=== PATIENT | male | born 1940 | race Caucasian/White ===

== ENCOUNTER 2017-06-10 15:21 | Observation (INO) | payer OTHER ==
[~2017-06-10] VITALS: Ht 167.6 cm; Wt 90.8 kg
[~2017-06-10 15:21] MED LIST: ALBU0.086 INH; ALLO300T2 PO; BENZ100C4 PO; GLUCTAB PO; LEVA500T33 PO; LISI10TA PO; PROP10TA6 PO; ROPI.5 PO; SPACER; SULF-154 PO
[2017-06-10 15:30] VITALS: BP 192/83; PULSE 69; RESP 17; TEMP 97.7; O2SAT 93
[2017-06-10] MEDS ORDERED: ALLO300T2 PO (15:56)
[2017-06-10] MEDS ORDERED: LEVO88TA2 PO (15:56)
[2017-06-10] MEDS ORDERED: INHALER (15:56)
[2017-06-10] MEDS ORDERED: LISI20TA PO (15:56)
[2017-06-10] MEDS ORDERED: PROP40TA3 PO (15:56)
[2017-06-10] MEDS ORDERED: PRIM50TA5 PO (15:56)
[2017-06-10] MEDS ORDERED: PROP20TA3 PO (15:56)
[2017-06-10] MEDS ORDERED: LEVO500T8 PO (15:56)
[2017-06-10] MEDS ORDERED: PREDNISONE PAK (15:56)
[2017-06-10] MEDS ORDERED: AMLO10TA2 PO (15:56)
[2017-06-10] MEDS ORDERED: FENO54TA PO (15:56)
[2017-06-10] MEDS ORDERED: GLIM4TAB PO (15:56)
[2017-06-10] MEDS ORDERED: METF1000 PO (15:56)
[2017-06-10] MEDS ORDERED: PRAV40TA2 PO (15:56)
[2017-06-10] MEDS ORDERED: methylPREDNISolone SOD SUCC 125 MG/2 ML VIAL IV PUSH ONE (16:00)
[2017-06-10] MEDS: RESP: ALBUTEROL 2.5 MG/IPRATROPIUM 0.5 MG NEB (SCH) INH (16:01)
--- NOTE | 2017-06-10 16:32 | PD ---
HPI Chief Complaint: Cold / Flu Symptoms Time Seen by Provider: 15:37 Travel History International Travel<30 days: No Contact w/Intl Traveler<30days: No Traveled to known affect area: No History of Present Illness HPI This is a 76-year-old male with a history of COPD who presents for cough. He has had a nonproductive cough for nearly 4 weeks. He has already completed a Z- Arya and possibly a first dose of prednisone. 2 days ago, he saw his primary physician and was started on Levaquin and prednisone. Despite this, he continues to have cough, wheeze, shortness of breath. He has been using albuterol inhaler without relief. His symptoms are aggravated by exertion. His chest feels tight with coughing but he is not otherwise having chest pain. This does not radiate to arm, neck, jaw. No lower extremity edema, calf pain. Symptoms are moderate in severity. Onset gradual. PFSH Past Medical History Cancer: Yes (COLON) COPD: Yes Diabetes: Yes Patient Takes Glucophage: Yes Diminished Hearing: No Gout: Yes Hypertension: Yes Tetanus Vaccination: Unknown Past Surgical History Abdominal Surgery: Yes (COLON RESECTION) Social History Alcohol Use: No Tobacco Use: No Substance Use: No Allergies-Medications (Allergen,Severity, Reaction): Coded Allergies: No Known Allergies (Unverified Adverse Reaction, Unknown, 06/10/17) Reported Meds & Prescriptions Reported Meds & Active Scripts Active Reported [Inhaler] DIRECTED Levofloxacin 500 Mg Tablet 500 Mg PO DAILY [Prednisone Arya] DIRECTED Amlodipine (Amlodipine Besylate) 10 Mg Tab 10 Mg PO DAILY Levothyroxine (Levothyroxine Sodium) 88 Mcg Tab 88 Mcg PO DAILY Propranolol (Propranolol HCl) 20 Mg Tab 20 Mg PO PM Propranolol (Propranolol HCl) 40 Mg Tab 40 Mg PO AM Metformin (Metformin HCl) 1,000 Mg Tab 1,000 Mg PO BIDPC Fenofibrate 54 Mg Tab 54 Mg PO DAILY Glimepiride 4 Mg Tab 4 Mg PO BIDAC Allopurinol 300 Mg Tab 300 Mg PO DAILY Primidone 50 Mg Tab 150 Mg PO BID Pravastatin 40 Mg Tab 40 Mg PO DAILY Lisinopril-Hctz 20-12.5 Mg Tab 1 Tab PO DAILY Review of Systems Except as stated in HPI: all other systems reviewed are Neg Physical Exam Narrative GENERAL: Alert, well nourished, well appearing patient resting on the bed in no acute distress. Vital Signs reviewed SKIN: Focused skin assessment warm/dry. HEAD: Atraumatic. Normocephalic. EYES: Pupils equal and round. No scleral icterus. No injection or drainage. ENT: No nasal bleeding or discharge. Mucous membranes pink and moist. NECK: Trachea midline. No JVD. Spontaneous, painless full range of motion with no meningismus CARDIOVASCULAR: Regular rate and rhythm. No murmur appreciated. Extremities warm and well perfused with bounding peripheral pulses RESPIRATORY: Diffuse expiratory wheezes present.. Breathing easily and speaking in full sentences GASTROINTESTINAL: Abdomen soft, non-tender, nondistended. Normal bowel sounds. No rigid, rebound, guarding MUSCULOSKELETAL: No obvious deformities. No clubbing. No cyanosis. No edema. Compartments are soft NEUROLOGICAL: Awake and alert. No obvious cranial nerve deficits. Motor grossly within normal limits. Normal speech. Sensation intact. Normal gait Data Data Last Documented VS Vital Signs Date Time Temp Pulse Resp B/P (MAP) Pulse Ox O2 Delivery O2 Flow Rate FiO2 06/10/17 15:42 16 93 Room Air 06/10/17 15:30 97.7 69 192/83 (119) Orders Orders Electrocardiogram (06/10/17 15:48) Complete Blood Count With Diff (06/10/17 15:48) Comprehensive Metabolic Panel (06/10/17 15:48) Prothrombin Time / Inr (Pt) (06/10/17 15:48) Act Partial Throm Time (Ptt) (06/10/17 15:48) Lactic Acid Sepsis Protocol (06/10/17 15:48) Magnesium (Mg) (06/10/17 15:48) Ckmb (Isoenzyme) Profile (06/10/17 15:48) Troponin I (06/10/17 15:48) Influenzae A/B Antigen (06/10/17 15:48) Blood Culture (06/10/17 15:48) Chest, Pa & Lat (06/10/17 15:48) Ecg Monitoring (06/10/17 15:48) Iv Access Insert/Monitor (06/10/17 15:48) Oximetry (06/10/17 15:48) Methylprednisolone So Succ Inj (Solumedr (06/10/17 16:00) Albuterol-Ipratropium Neb (Duoneb Neb) (06/10/17 16:00) Sodium Chlor 0.9% 1000 Ml Inj (Ns 1000 M (06/10/17 18:11) Cefepime Inj (Maxipime Inj) (06/10/17 18:15) Azithromycin Inj (Zithromax Inj) (06/10/17 18:15) Labs Laboratory Tests Test 06/10/17 16:06 06/10/17 17:00 White Blood Count 8.0 TH/MM3 Red Blood Count 4.54 MIL/MM3 Hemoglobin 14.1 GM/DL Hematocrit 41.6 % Mean Corpuscular Volume 91.7 FL Mean Corpuscular Hemoglobin 31.0 PG Mean Corpuscular Hemoglobin Concent 33.8 % Red Cell Distribution Width 14.1 % Platelet Count 277 TH/MM3 Mean Platelet Volume 8.5 FL Neutrophils (%) (Auto) 81.2 % Lymphocytes (%) (Auto) 11.2 % Monocytes (%) (Auto) 4.9 % Eosinophils (%) (Auto) 1.6 % Basophils (%) (Auto) 1.1 % Neutrophils # (Auto) 6.5 TH/MM3 Lymphocytes # (Auto) 0.9 TH/MM3 Monocytes # (Auto) 0.4 TH/MM3 Eosinophils # (Auto) 0.1 TH/MM3 Basophils # (Auto) 0.1 TH/MM3 CBC Comment AUTO DIFF Differential Comment AUTO DIFF CONFIRMED Platelet Estimate NORMAL Platelet Morphology Comment NORMAL Prothrombin Time 10.5 SEC Prothromb Time International Ratio 1.0 RATIO Activated Partial Thromboplast Time 29.4 SEC Blood Urea Nitrogen 30 MG/DL Creatinine 1.30 MG/DL Random Glucose 81 MG/DL Total Protein 7.0 GM/DL Albumin 3.8 GM/DL Calcium Level 8.8 MG/DL Magnesium Level 1.8 MG/DL Alkaline Phosphatase 52 U/L Aspartate Amino Transf (AST/SGOT) 16 U/L Alanine Aminotransferase (ALT/SGPT) 24 U/L Total Bilirubin 0.1 MG/DL Sodium Level 134 MEQ/L Potassium Level 4.9 MEQ/L Chloride Level 98 MEQ/L Carbon Dioxide Level 25.3 MEQ/L Anion Gap 11 MEQ/L Estimat Glomerular Filtration Rate 54 ML/MIN Lactic Acid Level 4.7 mmol/L Total Creatine Kinase 60 U/L Troponin I LESS THAN 0.02 NG/ML MDM Medical Decision Making Medical Screen Exam Complete: Yes Emergency Medical Condition: Yes Medical Record Reviewed: Yes Interpretation(s) EKG shows sinus rhythm with a rate of 71. No acute ST elevation Last 24 hours Impressions Chest X-Ray 06/10/17 1548 Signed Impressions: Service Date/Time: Saturday, June 10, 2017 17:01 - CONCLUSION: Basilar atelectasis. eKv Bartlett MD Laboratory Tests Test 06/10/17 16:06 06/10/17 17:00 White Blood Count 8.0 TH/MM3 Red Blood Count 4.54 MIL/MM3 Hemoglobin 14.1 GM/DL Hematocrit 41.6 % Mean Corpuscular Volume 91.7 FL Mean Corpuscular Hemoglobin 31.0 PG Mean Corpuscular Hemoglobin Concent 33.8 % Red Cell Distribution Width 14.1 % Platelet Count 277 TH/MM3 Mean Platelet Volume 8.5 FL Neutrophils (%) (Auto) 81.2 % Lymphocytes (%) (Auto) 11.2 % Monocytes (%) (Auto) 4.9 % Eosinophils (%) (Auto) 1.6 % Basophils (%) (Auto) 1.1 % Neutrophils # (Auto) 6.5 TH/MM3 Lymphocytes # (Auto) 0.9 TH/MM3 Monocytes # (Auto) 0.4 TH/MM3 Eosinophils # (Auto) 0.1 TH/MM3 Basophils # (Auto) 0.1 TH/MM3 CBC Comment AUTO DIFF Differential Comment AUTO DIFF CONFIRMED Platelet Estimate NORMAL Platelet Morphology Comment NORMAL Prothrombin Time 10.5 SEC Prothromb Time International Ratio 1.0 RATIO Activated Partial Thromboplast Time 29.4 SEC Blood Urea Nitrogen 30 MG/DL Creatinine 1.30 MG/DL Random Glucose 81 MG/DL Total Protein 7.0 GM/DL Albumin 3.8 GM/DL Calcium Level 8.8 MG/DL Magnesium Level 1.8 MG/DL Alkaline Phosphatase 52 U/L Aspartate Amino Transf (AST/SGOT) 16 U/L Alanine Aminotransferase (ALT/SGPT) 24 U/L Total Bilirubin 0.1 MG/DL Sodium Level 134 MEQ/L Potassium Level 4.9 MEQ/L Chloride Level 98 MEQ/L Carbon Dioxide Level 25.3 MEQ/L Anion Gap 11 MEQ/L Estimat Glomerular Filtration Rate 54 ML/MIN Lactic Acid Level 4.7 mmol/L Total Creatine Kinase 60 U/L Troponin I LESS THAN 0.02 NG/ML Differential Diagnosis Acute bronchitis, pneumonia, COPD exacerbation, atypical angina, failed outpatient therapy Narrative Course Patient was placed on a monitor car operator. IV access was established. EKG, chest x-ray, labs were performed. Patient was given IV fluids, DuoNeb's and IV Solu-Medrol. He was given broad-spectrum IV antibiotics. I am concerned regarding his failed outpatient therapy of COPD exacerbation and elevated lactate. Plan for admission for further evaluation and care Diagnosis Primary Impression: COPD exacerbation Additional Impression: Failure of outpatient treatment Josefina Liu MD Jun 10, 2017 16:32
[2017-06-10 16:35] LABS: AUTOMATED NEUTROPHIL # 6.5 TH/MM3 (1.8-7.7); BASOPHIL # 0.1 TH/MM3 (0-0.2); BASOPHIL % 1.1 % (0.0-2.0); EOSINOPHIL # 0.1 TH/MM3 (0-0.4); EOSINOPHIL % 1.6 % (0.0-4.0); HEMATOCRIT 41.6 % (39.0-51.0); HEMOGLOBIN 14.1 GM/DL (13.0-17.0); LYMPH % 11.2 % (9.0-44.0); LYMPHOCYTE # 0.9 TH/MM3 (1.0-4.8); MEAN CELL VOLUME 91.7 FL (80.0-100.0); MEAN CORPUSCULAR HGB CONC 33.8 % (32.0-36.0); MEAN PLATELET VOLUME 8.5 FL (7.0-11.0); MONO % 4.9 % (0.0-8.0); MONOCYTE # 0.4 TH/MM3 (0-0.9); NEUT % 81.2 % (16.0-70.0); PLATELET COUNT 277 TH/MM3 (150-450); RED BLOOD COUNT 4.54 MIL/MM3 (4.50-5.90); RED CELL DISTRIBUTION WIDTH 14.1 % (11.6-17.2)
--- NOTE | 2017-06-10 17:19 | RADRPT ---
EXAM DATE/TIME: 06/10/2017 17:01 [facility] COMPARISON: No previous studies available for comparison. INDICATIONS : Cough, short of breath, for 4 weeks MEDICAL HISTORY : Chronic obstructive pulmonary disease. Diabetes mellitus type II. SURGICAL HISTORY : None. ENCOUNTER: Initial ACUITY: 1 month PAIN SCORE: 0/10 LOCATION: Bilateral chest FINDINGS: There is cardiomegaly. There are atelectatic changes at the lung bases. No definite effusion or conso lidation. Degenerative changes of the spine. ACDF hardware overlies the cervical spine. Moderate dege nerative changes at the acromioclavicular joints. CONCLUSION: Basilar atelectasis. Kev Bartlett MD on June 10, 2017 at 17:18 Board Certified Radiologist. This report was verified electronically.
[2017-06-10 17:30] LABS: CHLORIDE 98 MEQ/L (98-107); SODIUM (NA) 134 MEQ/L (136-145)
[2017-06-10 17:34] LABS: ALBUMIN 3.8 GM/DL (3.4-5.0); BICARBONATE 25.3 MEQ/L (21.0-32.0); CALCIUM 8.8 MG/DL (8.5-10.1)
[2017-06-10 17:35] LABS: BLOOD UREA NITROGEN 30 MG/DL (7-18); GLUCOSE,RANDOM 81 MG/DL (74-106); MAGNESIUM 1.8 MG/DL (1.5-2.5)
[2017-06-10 17:36] LABS: PROTHROMBIN TIME - PATIENT 10.5 SEC (9.8-11.6)
[2017-06-10 17:37] LABS: ALT (GPT) 24 U/L (12-78); AST (GOT) 16 U/L (15-37)
[2017-06-10 17:38] LABS: GLOMERULAR FILTRATION RATE 54 ML/MIN (>89)
[2017-06-10 17:39] LABS: TOTAL BILIRUBIN ADULT 0.1 MG/DL (0.2-1.0)
[2017-06-10 17:40] LABS: ALKALINE PHOSPHATASE 52 U/L (45-117)
[2017-06-10 17:43] LABS: TROPONIN I LESS THAN 0.02 NG/ML (0.02-0.05)
[2017-06-10 18:01] LABS: LACTIC ACID SEPSIS PROTOCOL 4.7 mmol/L (0.4-2.0)
[2017-06-10] MEDS ORDERED: SODIUM CHLOR 0.9% 1000 ML INJ 1,000 ML IV SCH (18:11)
[2017-06-10] MEDS ORDERED: CEFEPIME INJ 2,000 MG in SODIUM CHLORIDE 0.9% INJ 100 ML IV ONE (18:15)
[2017-06-10] MEDS ORDERED: AZITHROMYCIN INJ 500 MG in SODIUM CHLOR 0.9% 250 ML INJ 250 ML IV ONE (18:15)
[2017-06-10] MEDS ORDERED: GLUCAGON 1 MG/ML VIAL OTHER PRN (18:45)
[2017-06-10] MEDS ORDERED: NALOXONE HCL 0.4 MG/ML AMP IV PUSH PRN (18:45)
[2017-06-10] MEDS ORDERED: SODIUM CHLORIDE 0.9% FLUSH 10 ML FLUSH IV FLUSH PRN (18:45)
[2017-06-10] MEDS ORDERED: ACETAMINOPHEN 325 MG TAB PO PRN (18:45)
[2017-06-10] MEDS ORDERED: RESP: ALBUTEROL 2.5 MG/IPRATROPIUM 0.5 MG NEB (PRN) NEB (18:45)
[2017-06-10] MEDS ORDERED: DEXTROSE 50% IN WATER 50 ML VIAL(D50) IV PUSH PRN (18:45)
[2017-06-10] MEDS ORDERED: SENNOSIDES 8.6 MG TAB PO PRN (18:45)
--- NOTE | 2017-06-10 18:57 | HHI.HP ---
[facility] Service [facility] Primary Care Physician Devante Arellano Do, MD Admission Diagnosis COPD Exacerbation, Failed Outpatient therapy, Acute Bronchitis Diagnoses: Chief Complaint: Shortness of breath Travel History International Travel<30 Days: No Contact w/Intl Traveler <30 Da: No Traveled to Known Affected Are: No History of Present Illness This patient is a 76-year-old gentleman with history of COPD who came to the emergency room with increased cough. Through the outpatient setting he has completed a Z-Arya and some Levaquin as well as a steroid course 2. Patient still had coughing and wheezing and shortness of breath. Patient did come to the hospital for further evaluation. Sputum is nonproductive. He has been admitted to the hospital for further evaluation due to failed outpatient treatment. Review of Systems Constitutional: DENIES: Diaphoretic episodes, Fatigue, Fever, Weight gain, Weight loss, Chills, Dizziness, Change in appetite, Night Sweats Endocrine: DENIES: Heat/cold intolerance, Polydipsia, Polyuria, Polyphagia Eyes: DENIES: Blurred vision, Diplopia, Eye inflammation, Eye pain, Vision loss , Photosensitivity, Double Vision Ears, nose, mouth, throat: DENIES: Tinnitus, Hearing loss, Vertigo, Nasal discharge, Oral lesions, Throat pain, Hoarseness, Ear Pain, Running Nose, Epistaxis, Sinus Pain, Toothache, Odynophagia Respiratory: COMPLAINS OF: Wheezing, Shortness of breath, DENIES: Apneas, Cough , Snoring, Hemoptysis, Sputum production Cardiovascular: COMPLAINS OF: Dyspnea on Exertion, DENIES: Chest pain, Palpitations, Syncope, PND, Lower Extremity Edema, Orthopnea, Claudication Gastrointestinal: DENIES: Abdominal pain, Black stools, Bloody stools, Constipation, Diarrhea, Nausea, Vomiting, Difficulty Swallowing, Anorexia Genitourinary: DENIES: Sexual dysfunction, Urinary frequency, Urinary incontinence, Urgency, Hematuria, Dysuria, Nocturia, Penile Discharge, Testicular Pain, Testicular Swelling Musculoskeletal: DENIES: Joint pain, Muscle aches, Stiffness, Joint Swelling, Back pain, Neck pain Integumentary: DENIES: Abnormal pigmentation, Nail changes, Pruritus, Rash Hematologic/lymphatic: DENIES: Bruising, Lymphadenopathy Immunologic/allergic: DENIES: Eczema, Urticaria Neurologic: COMPLAINS OF: Tremor, DENIES: Abnormal gait, Headache, Localized weakness, Paresthesias, Seizures, Speech Problems, Poor Balance Psychiatric: DENIES: Anxiety, Confusion, Mood changes, Depression, Hallucinations, Agitation, Suicidal Ideation, Homicidal Ideation, Delusions Except as stated in HPI: all other systems reviewed are Neg Past Family Social History Past Medical History COPD Parkinson's Hypertension Colon cancer Diabetes Gout Past Surgical History Neck surgery, colon resection Reported Medications Reviewed in the EMR, recently took levofloxacin and prednisone pack Allergies: Coded Allergies: No Known Allergies (Unverified Adverse Reaction, Unknown, 06/10/17) Active Ordered Medications Reviewed in the EMR Family History Mother had hypertension Social History Denies tobacco or alcohol dependency, lives with his Physical Exam Vital Signs Vital Signs Date Time Temp Pulse Resp B/P (MAP) Pulse Ox O2 Delivery O2 Flow Rate FiO2 06/10/17 15:42 16 93 Room Air 06/10/17 15:30 97.7 69 17 192/83 (119) 93 Physical Exam GENERAL: This is a well-nourished, well-developed patient, tremor at rest, complaining of shortness of breath SKIN: No rashes, ecchymoses or lesions. Cool and dry. HEAD: Atraumatic. Normocephalic. No temporal or scalp tenderness. EYES: Pupils equal round and reactive. Extraocular motions intact. No scleral icterus. No injection or drainage. ENT: Nose without bleeding, purulent drainage or septal hematoma. Throat without erythema, tonsillar hypertrophy or exudate. Uvula midline. Airway patent. NECK: Trachea midline. No JVD or lymphadenopathy. Supple, nontender, no meningeal signs. CARDIOVASCULAR: Regular rate and rhythm without murmurs, gallops, or rubs. RESPIRATORY: Bilateral rhonchorous breath sounds, tachypneic GASTROINTESTINAL: Abdomen soft, non-tender, nondistended. No hepato-splenomegaly , or palpable masses. No guarding. MUSCULOSKELETAL: Extremities without clubbing, cyanosis, or edema. No joint tenderness, effusion, or edema noted. No calf tenderness. Negative Homans sign bilaterally. NEUROLOGICAL: Awake and alert. Cranial nerves II through XII intact. Motor and sensory grossly within normal limits. Five out of 5 muscle strength in all muscle groups. Normal speech. Laboratory Laboratory Tests Test 06/10/17 16:06 06/10/17 17:00 White Blood Count 8.0 Red Blood Count 4.54 Hemoglobin 14.1 Hematocrit 41.6 Mean Corpuscular Volume 91.7 Mean Corpuscular Hemoglobin 31.0 Mean Corpuscular Hemoglobin Concent 33.8 Red Cell Distribution Width 14.1 Platelet Count 277 Mean Platelet Volume 8.5 Neutrophils (%) (Auto) 81.2 Lymphocytes (%) (Auto) 11.2 Monocytes (%) (Auto) 4.9 Eosinophils (%) (Auto) 1.6 Basophils (%) (Auto) 1.1 Neutrophils # (Auto) 6.5 Lymphocytes # (Auto) 0.9 Monocytes # (Auto) 0.4 Eosinophils # (Auto) 0.1 Basophils # (Auto) 0.1 CBC Comment AUTO DIFF Differential Comment AUTO DIFF CONFIRMED Platelet Estimate NORMAL Platelet Morphology Comment NORMAL Prothrombin Time 10.5 Prothromb Time International Ratio 1.0 Activated Partial Thromboplast Time 29.4 Blood Urea Nitrogen 30 Creatinine 1.30 Random Glucose 81 Total Protein 7.0 Albumin 3.8 Calcium Level 8.8 Magnesium Level 1.8 Alkaline Phosphatase 52 Aspartate Amino Transf (AST/SGOT) 16 Alanine Aminotransferase (ALT/SGPT) 24 Total Bilirubin 0.1 Sodium Level 134 Potassium Level 4.9 Chloride Level 98 Carbon Dioxide Level 25.3 Anion Gap 11 Estimat Glomerular Filtration Rate 54 Lactic Acid Level 4.7 Total Creatine Kinase 60 Troponin I LESS THAN 0.02 Date/Time Source Procedure Growth Status 06/10/17 16:06 Blood Peripheral Aerobic Blood Culture Pending Received 06/10/17 16:06 Blood Peripheral Anaerobic Blood Culture Pending Received 06/10/17 16:06 Nasal Washing Influenza Types A,B Antigen ([place]) - Final NEGATIVE FOR FLU A AND B ANTIGEN.... Complete Result Diagram: 06/10/17 1606 06/10/17 1700 Imaging Last Impressions Chest X-Ray 06/10/17 1548 Signed Impressions: Service Date/Time: Saturday, June 10, 2017 17:01 - CONCLUSION: Basilar atelectasis. Kev Bartlett MD Septic Shock Reassessment Septic shock perfusion: reassessment completed Caprini VTE Risk Assessment Caprini VTE Risk Assessment: No/Low Risk (score <= 1) Caprini Risk Assessment Model Point Value = 1 Point Value = 2 Point Value = 3 Point Value = 5 Age 41-60 Minor surgery BMI > 25 kg/m2 Swollen legs Varicose veins or History of unexplained or recurrent spontaneous Oral contraceptives or hormone replacement Sepsis (< 1 month) Serious lung disease, including pneumonia (< 1 month) Abnormal pulmonary function Acute myocardial infarction Congestive heart failure (< 1 month) History of inflammatory bowel disease Medical patient at bed rest Age 61-74 Arthroscopic surgery Major open surgery (> 45 min) Laparoscopic surgery (> 45 min) Malignancy Confined to bed (> 72 hours) Immobilizing plaster cast Central venous access Age >= 75 History of VTE Family history of VTE Factor V Leiden Prothrombin [id number] Lupus anticoagulant Anticardiolipin antibodies Elevated serum homocysteine Heparin-induced thrombocytopenia Other congenital or acquired thrombophilia Stroke (< 1 month) Elective arthroplasty Hip, pelvis, or leg fracture Acute spinal cord injury (< 1 month) Prophylaxis Regimen Total Risk Factor Score Risk Level Prophylaxis Regimen 0-1 Low Early ambulation 2 Moderate Order ONE of the following: *Sequential Compression Device (SCD) *Heparin 5000 units SQ BID 3-4 Higher Order ONE of the following medications: *Heparin 5000 units SQ TID *Enoxaparin/Lovenox 40 mg SQ daily (WT < 150 kg, CrCl > 30 mL/min) *Enoxaparin/Lovenox 30 mg SQ daily (WT < 150 kg, CrCl > 10-29 mL/min) *Enoxaparin/Lovenox 30 mg SQ BID (WT < 150 kg, CrCl > 30 mL/min) AND/OR *Sequential Compression Device (SCD) 5 or more Highest Order ONE of the following medications: *Heparin 5000 units SQ TID (Preferred with Epidurals) *Enoxaparin/Lovenox 40 mg SQ daily (WT < 150 kg, CrCl > 30 mL/min) *Enoxaparin/Lovenox 30 mg SQ daily (WT < 150 kg, CrCl > 10-29 mL/min) *Enoxaparin/Lovenox 30 mg SQ BID (WT < 150 kg, CrCl > 30 mL/min) AND *Sequential Compression Device (SCD) Assessment and Plan Problem List: (1) DM2 (diabetes mellitus, type 2) ICD Code: E11.9 - Type 2 diabetes mellitus without complications Plan: Controlled on current regimen at home however we will discontinue metformin while inpatient and continue with sliding scale insulin and diabetic diet (2) HTN (hypertension) ICD Code: I10 - Essential (primary) hypertension Plan: Patient's blood pressures controlled on current regimen of propanolol and amlodipine which we will continue (3) Parkinson disease ICD Code: G20 - Parkinson's disease Plan: mostly tremors no meds (4) COPD exacerbation ICD Code: J44.1 - Chronic obstructive pulmonary disease with (acute) exacerbation Status: Acute Plan: Continue with nebulized bronchodilators and IV steroids, IV antibiotics Follow-up CT chest Physician Certification 2 Midnight Certification Type: Admission for Inpatient Services Order for Inpatient Services The services are ordered in accordance with Medicare regulations or non- Medicare payer requirements, as applicable. In the case of services not specified as inpatient-only, they are appropriately provided as inpatient services in accordance with the 2-midnight benchmark. Estimated LOS (days): 3 3 days is the estimated time the patient will need to remain in the hospital, assuming treatment plan goals are met and no additional complications. Post-Hospital Plan: Home Beatrice Holden MD Jun 10, 2017 18:57
[2017-06-10 19:11] VITALS: BP 170/75; PULSE 67; RESP 18; O2SAT 92
[2017-06-10] MEDS: RESP: ALBUTEROL 2.5 MG/IPRATROPIUM 0.5 MG NEB (SCH) NEB (19:18)
[2017-06-10 19:21] VITALS: O2SAT 95
[2017-06-10] MEDS: SODIUM CHLORIDE 0.9% FLUSH 10 ML FLUSH IV FLUSH SCH (20:32)
--- NOTE | 2017-06-10 20:35 | RADRPT ---
EXAM DATE/TIME: 06/10/2017 20:15 [facility] COMPARISON: CHEST PA & LAT, June 10, 2017, 17:01. INDICATIONS : Cough and short of breath x 4 weeks. Pneumonia. RADIATION DOSE: 17.31 CTDIvol (mGy) MEDICAL HISTORY : Carcinoma, colon. Chronic obstructive pulmonary disease. Diabetes mellitus type 2. Hypertension. SURGICAL HISTORY : Colon resection. ENCOUNTER: Initial ACUITY: 1 month PAIN SCALE: 0/10 LOCATION: chest TECHNIQUE: Volumetric scanning of the chest was performed. Using automated exposure control and adjustment of t he mA and/or kV according to patient size, radiation dose was kept as low as reasonably achievable to obtain optimal diagnostic quality images. DICOM format image data is available electronically for r eview and comparison. Follow-up recommendations for detected pulmonary nodules are based at a minimum on nodule size and pa tient risk factors according to Fleischner Society Guidelines. FINDINGS: There is a calcified granuloma in the left lower lobe measuring 3.3 mm on image 26. There are depende nt atelectatic changes identified. There is no evidence of pneumonia. Prominent coronary artery calci fication is seen. There is aneurysmal dilatation of the ascending aorta measuring 4.5 x 4.6 cm in AP and transverse dimension on image 28. No pleural or pericardial effusions are seen. Atherosclerotic c alcifications of the aorta are noted, and there are degenerative changes of the spine. CONCLUSION: 1. Ascending aortic aneurysm. 2. Dependent atelectatic changes. 3. Left lower lobe calcified granuloma. 4. Atherosclerosis. Kev Bartlett MD on June 10, 2017 at 20:32 Board Certified Radiologist. This report was verified electronically.
[2017-06-10] MEDS ORDERED: PROPRANOLOL HCL 20 MG TAB PO SCH (21:00)
[2017-06-10] MEDS: INSULIN ASPART SUPPLEMENTAL SCALE SQ SCH (21:00)
[2017-06-10] MEDS: SODIUM CHLOR 0.9% 1000 ML INJ 1,000 ML IV SCH (21:37)
[2017-06-10] MEDS: DOXYCYCLINE INJ 100 MG in SODIUM CHLORIDE 0.9% INJ 100 ML IV SCH (21:39)
[2017-06-10] MEDS: PRIMIDONE 50 MG TAB PO SCH (21:39)
[2017-06-11] VITALS: BP 141/70; PULSE 71; RESP 18; TEMP 96.6; O2SAT 95
[2017-06-11] MEDS: methylPREDNISolone SOD SUCC 40 MG/1 ML VIAL IV PUSH SCH ×2 (00:21→09:57)
[2017-06-11] MEDS ORDERED: CEFEPIME INJ 1,000 MG in SODIUM CHLORIDE 0.9% INJ 100 ML IV SCH ×2 (02:00→06:00)
[2017-06-11] MEDS: SODIUM CHLOR 0.9% 1000 ML INJ 1,000 ML IV SCH (04:36)
[2017-06-11] MEDS ORDERED: LEVOTHYROXINE SODIUM 88 MCG TAB PO SCH (06:00)
[2017-06-11] MEDS ORDERED: GLIMEPIRIDE 4 MG TAB PO SCH (07:00)
[2017-06-11 07:13] LABS: BASOPHIL # 0.2 TH/MM3 (0-0.2); BASOPHIL % 2.3 % (0.0-2.0); EOSINOPHIL % 0.3 % (0.0-4.0); HEMATOCRIT 35.5 % (39.0-51.0); HEMOGLOBIN 12.4 GM/DL (13.0-17.0); LYMPH % 10.8 % (9.0-44.0); LYMPHOCYTE # 0.8 TH/MM3 (1.0-4.8); MEAN CELL VOLUME 92.8 FL (80.0-100.0); MEAN CORPUSCULAR HEMOGLOBIN 32.5 PG (27.0-34.0); MEAN CORPUSCULAR HGB CONC 35.1 % (32.0-36.0); MEAN PLATELET VOLUME 8.1 FL (7.0-11.0); MONO % 3.8 % (0.0-8.0); MONOCYTE # 0.3 TH/MM3 (0-0.9); NEUT % 82.8 % (16.0-70.0); PLATELET COUNT 190 TH/MM3 (150-450); RED BLOOD COUNT 3.82 MIL/MM3 (4.50-5.90); RED CELL DISTRIBUTION WIDTH 13.8 % (11.6-17.2); WHITE BLOOD COUNT 7.3 TH/MM3 (4.0-11.0)
[2017-06-11 07:23] LABS: CALCIUM 8.2 MG/DL (8.5-10.1)
[2017-06-11 07:24] LABS: BICARBONATE 25.5 MEQ/L (21.0-32.0)
[2017-06-11] MEDS: RESP: ALBUTEROL 2.5 MG/IPRATROPIUM 0.5 MG NEB (SCH) NEB (07:33)
[2017-06-11 07:36] VITALS: O2SAT 96
[2017-06-11 07:50] VITALS: BP 141/68; PULSE 59; RESP 20; TEMP 96.9; O2SAT 96
[2017-06-11] MEDS: DOXYCYCLINE INJ 100 MG in SODIUM CHLORIDE 0.9% INJ 100 ML IV SCH (08:00)
[2017-06-11] MEDS: INSULIN ASPART SUPPLEMENTAL SCALE SQ SCH (08:00)
--- NOTE | 2017-06-11 08:39 | HHI.PR ---
Subjective Remarks Patient seen and evaluated today in follow-up for COPD exacerbation with failed outpatient treatment, symptoms are improved dramatically today with nebulizer and IV steroids Objective Vitals Vital Signs Date Time Temp Pulse Resp B/P (MAP) Pulse Ox O2 Delivery O2 Flow Rate FiO2 06/11/17 07:36 96 Nasal Cannula 2.00 06/11/17 00:00 96.6 71 18 141/70 (93) 95 06/10/17 20:30 95 Nasal Cannula 2.00 06/10/17 20:25 82 18 06/10/17 19:21 95 Nasal Cannula 3.00 06/10/17 19:11 67 18 170/75 (106) 92 Room Air 06/10/17 19:11 92 Room Air 06/10/17 15:42 16 93 Room Air 06/10/17 15:30 97.7 69 17 192/83 (119) 93 I/O 06/10/17 06/10/17 06/10/17 06/11/17 06/11/17 06/11/17 07:00 15:00 23:00 07:00 15:00 23:00 Intake Total 1350 ml 875 ml Output Total 450 ml 200 ml Balance 900 ml 675 ml Intake Oral 180 ml IV Total 1350 ml 695 ml Output Urine Total 450 ml 200 ml # Voids 1 Result Diagram: 06/11/17 0633 06/11/17 0633 Objective Remarks GENERAL: This is a well-nourished, well-developed patient, in no apparent distress. CARDIOVASCULAR: Regular rate and rhythm without murmurs, gallops, or rubs. RESPIRATORY: Clear to auscultation. Breath sounds equal bilaterally. No wheezes , rales, or rhonchi. GASTROINTESTINAL: Abdomen soft, non-tender, nondistended. Normal active bowel sounds MUSCULOSKELETAL: Extremities without clubbing, cyanosis, or edema. NEURO: Alert & Oriented x4 to person, place, time, situation. Moves all ext x4 A/P Problem List: (1) DM2 (diabetes mellitus, type 2) ICD Code: E11.9 - Type 2 diabetes mellitus without complications Plan: Controlled on current regimen at home (2) HTN (hypertension) ICD Code: I10 - Essential (primary) hypertension Plan: Patient's blood pressures controlled on current regimen of propanolol and amlodipine which we will continue (3) Parkinson disease ICD Code: G20 - Parkinson's disease Plan: mostly tremors no meds (4) COPD exacerbation ICD Code: J44.1 - Chronic obstructive pulmonary disease with (acute) exacerbation Status: Acute Plan: Continue with nebulized bronchodilators and p.o. steroid taper with home antibiotic regimen CT of the chest is unremarkable for acute findings Discharge Planning Discharge home due to miraculous recovery Activity unrestricted Diet Beatrice Goddard MD Jun 11, 2017 08:39
[2017-06-11] MEDS ORDERED: PRED20 PO (08:41)
[2017-06-11] MEDS ORDERED: DOXY100C PO (08:41)
--- NOTE | 2017-06-11 08:41 | HHI.DCPOC ---
Discharge Care Plan Diagnosis: (1) COPD exacerbation Goals to Promote Your Health * To prevent worsening of your condition and complications * To maintain your health at the optimal level Directions to Meet Your Goals Take your medications as prescribed Follow your dietary instruction Follow activity as directed Keep your appointments as scheduled Take your immunizations and boosters as scheduled If your symptoms worsen call your PCP, if no PCP go to Urgent Care Center or Emergency Room Smoking is Dangerous to Your Health. Avoid second hand smoke Call the 24-hour hour crisis hotline for domestic abuse at Beatrice Holden MD Jun 11, 2017 08:41
[2017-06-11] MEDS ORDERED: PRAVASTATIN SOD 40 MG TAB PO SCH (09:00)
[2017-06-11] MEDS ORDERED: FENOFIBRATE 48 MG TAB PO SCH (09:00)
[2017-06-11] MEDS ORDERED: HYDROCHLOROTHIAZIDE 12.5 MG CAP PO SCH (09:00)
[2017-06-11] MEDS ORDERED: ALLOPURINOL 300 MG TAB PO SCH (09:00)
[2017-06-11] MEDS ORDERED: LISINOPRIL 20 MG TAB PO SCH (09:00)
[2017-06-11] MEDS ORDERED: PROPRANOLOL HCL 40 MG TAB PO SCH (09:00)
[2017-06-11] MEDS: SODIUM CHLORIDE 0.9% FLUSH 10 ML FLUSH IV FLUSH SCH (09:56)
[2017-06-11] MEDS: PRIMIDONE 50 MG TAB PO SCH (09:59)
--- NOTE | 2017-06-11 10:48 | EKG ---
Date Performed: 06/10/2017 Time Performed: 15:57:51 PTAGE: 76 years EKG: Sinus rhythm WITH SHORT MO INTERVAL MARKED LEFT AXIS DEVIATION INCOMPLETE RIGHT BUNDLE BRANCH BLOCK ABNORMAL ECG PREVIOUS TRACING : 04/10/2011 17.32 DOCTOR: Conrado Squires Interpretating Date/Time 06/11/2017 10:46:31
== END 2017-06-11 10:48 | disposition home or self-care (01) ==
LOC: PHED 15:21 → PHEDA 18:39 → PH3A 20:27
PROVIDERS: ADMIT Hospitalist; ATTEND Hospitalist
DX: J44.1 Chronic obstructive pulmonary disease with (acute) exacerbation (principal); G20 Parkinson's disease; I10 Essential (primary) hypertension; E11.9 Type 2 diabetes mellitus without complications; I45.10 Unspecified right bundle-branch block; R94.31 Abnormal electrocardiogram [ECG] [EKG]; I71.2 Thoracic aortic aneurysm, without rupture; I70.0 Atherosclerosis of aorta; J84.10 Pulmonary fibrosis, unspecified; J98.11 Atelectasis; Z79.899 Other long term (current) drug therapy; Z85.038 Personal history of other malignant neoplasm of large intestine
CPT/HCPCS: 36600; 71046; 71250; 80048; 80053; 82550; 82805; 82948; 83605; 83735; 84484; 85025; 85610; 85730; 87040; 87804; 93005; 94640; 94664; 96365; 96366; 96368; 96375; 96376; 99285; G0378; J0456; J0692; J2920; J2930; J7030; J7050